=== PATIENT | female | born 1950 | race Caucasian/White ===

== ENCOUNTER 2021-06-08 10:04 | Emergency (ER) | payer OTHER ==
[2021-06-08] MEDS ORDERED: Ondansetron 4 MG Tab.DIS PO STA (10:32)
[2021-06-08] MEDS ORDERED: Meclizine 25 MG Tab PO STA (10:36)
== END 2021-06-08 11:30 | disposition home or self-care (01) ==
LOC: FB.ED 10:04
DX: S09.90XA Unspecified injury of head, initial encounter (principal); Z88.1 Allergy status to other antibiotic agents; Z88.5 Allergy status to narcotic agent; W01.198A Fall on same level from slipping, tripping and stumbling with subsequent striking against other object, initial encounter; Y92.410 Unspecified street and highway as the place of occurrence of the external cause
CPT/HCPCS: 70450; 99283; A9270

== ENCOUNTER 2022-08-26 08:27 | Emergency (ER) | payer SELFPAY ==
[2022-08-26] MEDS: Sodium Chloride 0.9% 1,000 ML IV SCH ×2 (09:03→11:05)
[2022-08-26] MEDS: Ondansetron 4 MG/2 ML SDV IVPUSH ONE (09:03)
[2022-08-26 09:41] LABS: ESTIMATED GFR 8 mL/min (>60)
[2022-08-26 10:13] LABS: CORONAVIRUS COVID-19 NAA NEGATIVE (NEGATIVE)
[2022-08-26] MEDS: Pantoprazole 40 MG Vial IVPUSH ONE (11:23)
[2022-08-26] MEDS ORDERED: Ciprofloxacin in D5W 400 MG in Premix Bag 1 BAG IV SCH ×2 (11:45)
[2022-08-26] MEDS: Ciprofloxacin in D5W 200 MG in Premix Bag 1 BAG IV SCH ×2 (12:35)
[2022-08-26] MEDS: Morphine 2 MG/ML SYRINGE IVPUSH ONE (14:50)
== END 2022-08-26 15:00 ==
LOC: FB.ED 08:27
DX: E86.0 Dehydration (principal); N17.9 Acute kidney failure, unspecified; N13.9 Obstructive and reflux uropathy, unspecified; N39.0 Urinary tract infection, site not specified; D64.9 Anemia, unspecified; E87.1 Hypo-osmolality and hyponatremia; I44.7 Left bundle-branch block, unspecified; Z88.5 Allergy status to narcotic agent; Z88.0 Allergy status to penicillin; Z88.2 Allergy status to sulfonamides; Z88.1 Allergy status to other antibiotic agents; Z20.822 Contact with and (suspected) exposure to COVID-19
CPT/HCPCS: 0240U; 36415; 70450; 71045; 71250; 74176; 80053; 81001; 83605; 84484; 85025; 86140; 87040; 87086; 87088; 87186; 93005; 96361; 96365; 96375; 99284; C9113; J0744; J2270; J2405; J7030